=== PATIENT | female | born 1960 | race Caucasian/White ===

== ENCOUNTER 2023-04-05 00:13 | Emergency (ER) | payer OTHER ==
[~2023-04-05] VITALS: Ht 162.5 cm; Wt 78.9 kg
[2023-04-05] MEDS ORDERED: HYDROCODONE-AC1 EAC1 PO (02:11)
[2023-04-05] MEDS ORDERED: ONDANSETRON4 MG SL (02:11)
[2023-04-05] MEDS ORDERED: FLOMAX0.4 MG PO (02:11)
== END 2023-04-05 02:18 | disposition home or self-care (01) ==
LOC: ED 00:13
DX: N13.2 Hydronephrosis with renal and ureteral calculous obstruction (principal); N13.4 Hydroureter; Z88.2 Allergy status to sulfonamides; Z88.8 Allergy status to other drugs, medicaments and biological substances